=== PATIENT | male | born 1940 | race Caucasian/White ===

== ENCOUNTER 2018-11-22 15:32 | Outpatient (CLI) | payer MEDICARE, BC ==
--- NOTE | 2018-11-22 16:58 | RAD ---
RIGHT WRIST THREE VIEWS: History: Wrist severe pain, history of arthritis, 25.531. FINDINGS: Arthrosis and degenerative changes with numerous subchondral cystic changes. There is some evidence f or calcification and ossification in the region of the triangular fibrocartilage complex and periarti cular regions. No evidence for acute fracture or dislocation. 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 POS: C
== END 2018-11-22 15:33 | disposition home or self-care (01) ==
LOC: SCSRAD 15:32
PROVIDERS: ATTEND Nurse Practitioner Family
DX: M25.531 Pain in right wrist (principal); M19.031 Primary osteoarthritis, right wrist; M85.631 Other cyst of bone, right forearm

== ENCOUNTER 2021-06-07 08:29 | Outpatient (CLI) | payer MEDICARE, BC | END 2021-06-07 08:30 | disposition home or self-care (01) | LOC: SCSRAD 08:29 | PROVIDERS: ATTEND Family Medicine | DX: R05.9 Cough, unspecified (principal) | CPT/HCPCS: 71046 ==